=== PATIENT | female | born 1960 | race African-American/Black ===

== ENCOUNTER 2023-10-16 11:04 | Observation (INO) | payer SELFPAY ==
[2023-10-16] MEDS ORDERED: Ondansetron PF 4 MG/2 ML Vial ONE (11:30)
[2023-10-16 11:34] LABS: #Basophils 0.07 10x3/uL (0.0-0.2); %Basophils 0.7 % (0.0-1.0); %Eosinophils 5.9 % (0.0-10.0); %Lymphocytes 38.7 % (21.0-51.0); %Neutrophils 47.4 % (42.0-75.0); Hematocrit 40.5 % (36.0-47.0); Hemoglobin 13.4 g/dL (12.0-16.0); Mean Corpuscular HGB CONC 33.1 g/dL (32.0-36.0); Mean Corpuscular Volume 78.6 fL (78.0-98.0); Mean Platelet Volume 9.2 fL (7.4-10.4); Platelet Count 303 10x3/uL (130-400); RBC Distribution Width 16.4 % (11.5-14.5); Red Blood Cell (RBC) Count 5.15 mill/uL (4.20-5.40)
[2023-10-16] MEDS ORDERED: Meclizine HCl 25 MG TAB ONE (11:49)
[2023-10-16 11:55] LABS: ALT (SGPT) 20 U/L (8-55); AST (SGOT) 18 U/L (5-34); Albumin 3.4 g/dL (3.4-4.8); Alkaline Phosphatase 103 U/L (40-110); Anion Gap 10 mmol/L (10-20); BUN (Urea Nitrogen) 14 mg/dL (9.8-20.1); Bilirubin, Total 0.8 mg/dL (0.2-1.2); Calc. Creatinine Clearance 0 mL/min (70-130); Calcium 9.2 mg/dL (7.8-10.44); Carbon Dioxide 25 mmol/L (23-31); Chloride 109 mmol/L (98-107); Estimated GFR 86; Globulin 3.9 g/dL (2.4-3.5); Glucose 171 mg/dL (80-115); Potassium 2.8 mmol/L (3.5-5.1); Protein, Total 7.3 g/dL (5.8-8.1); Sodium 141 mmol/L (136-145)
[2023-10-16 12:01] LABS: Troponin I 0.032 ng/mL (< 0.028)
[2023-10-16] MEDS ORDERED: Magnesium 2 GM/50 ML BAG (IN WATER) ONE (12:50)
[2023-10-16] MEDS ORDERED: Aspirin Chewable 81 MG TAB ONE (12:50)
[2023-10-16] MEDS ORDERED: Potassium Chloride 20 MEQ TAB ONE (12:50)
[2023-10-16] MEDS ORDERED: Ondansetron PF 4 MG/2 ML Vial IVP PRN (13:28)
[2023-10-16] MEDS ORDERED: Senokot S 8.6-50 MG TAB PO PRN (13:28)
[2023-10-16] MEDS ORDERED: Ondansetron ODT 4 MG TAB PO PRN (13:28)
[2023-10-16] MEDS ORDERED: Calcium Carbonate 500 MG ChewTAB PO PRN (13:28)
[2023-10-16] MEDS ORDERED: Acetaminophen 325 MG TAB PO PRN (13:28)
[2023-10-16] MEDS ORDERED: Acetaminophen 650 MG Suppository PR PRN (13:28)
[2023-10-16] MEDS ORDERED: Albuterol 200 PUFF (6.7GM INHALER) INH PRN (13:30)
[2023-10-16] MEDS ORDERED: Benzonatate 100 MG CAP PO PRN (14:08)
[2023-10-16 15:30] LABS: Troponin I 0.033 ng/mL (< 0.028)
[2023-10-16] MEDS: Potassium Chloride 20 MEQ in Lactated Ringer's 1,000 ML IV SCH (15:35)
[2023-10-16 15:41] VITALS: BMI 33.2
[2023-10-16 19:47] LABS: Anion Gap 17 mmol/L (10-20); BUN (Urea Nitrogen) 12 mg/dL (9.8-20.1); Calc. Creatinine Clearance 113 mL/min (70-130); Calcium 9.1 mg/dL (7.8-10.44); Carbon Dioxide 26 mmol/L (23-31); Chloride 106 mmol/L (98-107); Estimated GFR 89; Glucose 189 mg/dL (80-115); Magnesium 2.5 mg/dL (1.6-2.6); Sodium 145 mmol/L (136-145)
[2023-10-16 19:52] LABS: Troponin I 0.038 ng/mL (< 0.028)
[2023-10-16] MEDS: Albuterol 2.5 MG (3 mL) NEB NEB PRN (20:01)
[2023-10-16] MEDS: Meclizine HCl 25 MG TAB PO SCH (21:20)
[2023-10-16] MEDS: Sertraline 25 MG TAB PO SCH (21:20)
[2023-10-17 04:55] LABS: Hemoglobin A1c 6.5 % (4.0-6.0)
[2023-10-17 04:57] LABS: #Basophils 0.05 10x3/uL (0.0-0.2); %Basophils 0.5 % (0.0-1.0); %Eosinophils 2.2 % (0.0-10.0); %Lymphocytes 21.9 % (21.0-51.0); %Monocytes 5.7 % (0.0-10.0); %Neutrophils 69.2 % (42.0-75.0); Anion Gap 13 mmol/L (10-20); BUN (Urea Nitrogen) 12 mg/dL (9.8-20.1); Calc. Creatinine Clearance 118 mL/min (70-130); Calcium 9.2 mg/dL (7.8-10.44); Carbon Dioxide 24 mmol/L (23-31); Chloride 112 mmol/L (98-107); Estimated GFR 93; Glucose 91 mg/dL (80-115); Hematocrit 39.5 % (36.0-47.0); Hemoglobin 12.7 g/dL (12.0-16.0); Magnesium 2.4 mg/dL (1.6-2.6); Mean Corpuscular HGB CONC 32.2 g/dL (32.0-36.0); Mean Corpuscular Hemoglobin 25.8 pg (27.0-31.0); Mean Corpuscular Volume 80.1 fL (78.0-98.0); Mean Platelet Volume 9.5 fL (7.4-10.4); Platelet Count 294 10x3/uL (130-400); Potassium 4.1 mmol/L (3.5-5.1); RBC Distribution Width 16.8 % (11.5-14.5); Red Blood Cell (RBC) Count 4.93 mill/uL (4.20-5.40); Sodium 145 mmol/L (136-145)
[2023-10-17] MEDS: Empagliflozin 10 MG TAB PO SCH (08:53)
[2023-10-17] MEDS: Loratadine 10 MG TAB PO SCH (08:53)
[2023-10-17] MEDS: Aspirin Chewable 81 MG TAB PO SCH (08:53)
[2023-10-17] MEDS: Atorvastatin Calcium 20 MG TAB PO SCH (08:55)
[2023-10-17 10:36] VITALS: TEMP 98.1
[2023-10-17 12:49] VITALS: BP 162/76
== END 2023-10-17 13:12 | disposition home or self-care (01) ==
LOC: ERS 11:04 → 2SW 15:29
PROVIDERS: ADMIT Family Medicine; ATTEND Internal Medicine
DX: R55 Syncope and collapse (principal); I10 Essential (primary) hypertension; E78.5 Hyperlipidemia, unspecified; R73.03 Prediabetes; J45.909 Unspecified asthma, uncomplicated; F32.A Depression, unspecified; E87.8 Other disorders of electrolyte and fluid balance, not elsewhere classified; E87.6 Hypokalemia; Z79.51 Long term (current) use of inhaled steroids; Z88.8 Allergy status to other drugs, medicaments and biological substances; Z79.899 Other long term (current) drug therapy; Z79.82 Long term (current) use of aspirin; Z87.891 Personal history of nicotine dependence
CPT/HCPCS: 36415; 36416; 70450; 70551; 71045; 80048; 80053; 83036; 83735; 84484; 85025; 93005; 94640; 94760; 96374; G0378; J2405; J3475; J3480; J7120; J7611